=== PATIENT | female | born 1945 | race Caucasian/White ===

== ENCOUNTER 2019-05-31 10:30 | Inpatient (IN) | payer MEDICARE, MEDICAID ==
[~2019-05-31] VITALS: Ht 162.6 cm; Wt 71.2 kg
[2019-05-31] MEDS ORDERED: SODIUM CHLORIDE 0.9% 1,000 ML IV ONE (10:36)
[2019-05-31 11:01] LABS: BASOPHILS % 0.7 % (0.0-2.0); EOSINOPHILS % 1.6 % (0.0-5.0); HEMATOCRIT. 43.1 % (36.0-48.0); HEMOGLOBIN. 14.7 g/dL (12.0-16.0); LYMPHOCYTES % 41.5 % (20.0-50.0); MEAN CORPUSCULAR HEMOGLOBIN 31.5 pg (28.0-32.0); MEAN CORPUSCULAR VOLUME 92.5 fL (81.0-99.0); MONOCYTES % 6.3 % (2.0-8.0); NEUTROPHILS % 49.9 % (40.0-76.0); PLATELET 275 x1000/uL (130-400); RED BLOOD CELL COUNT 4.66 mill/uL (4.2-5.4); RED CELL DISTRIBUTION WIDTH 14.5 % (11.6-14.6)
[2019-05-31 11:04] LABS: CHLORIDE 111 mEq/L (98-107)
[2019-05-31 11:11] LABS: LDL CHOLESTEROL 88 mg/dL (5-100)
[2019-05-31 11:14] LABS: INR 0.9; PARTIAL THROMBOPLASTIN TIME 25.9 sec (23.4-31.0); PROTHROMBIN TIME 9.7 sec (9.6-11.0)
[2019-05-31] MEDS ORDERED: POLYVINYL ALCOHOL OPHTH DROPS 15ML RIGHTEYE STA (12:20)
[2019-05-31] MEDS ORDERED: ACYCLOVIR 400 MG TABLET PO STA (12:20)
[2019-05-31] MEDS ORDERED: ACETAMINOPHEN 325MG TABLET PO ONE (12:30)
[2019-05-31] MEDS ORDERED: PREDNISONE 20MG TABLET PO ONE (12:30)
[2019-05-31] MEDS ORDERED: ASPIRIN 325MG EC TABLET PO ONE (12:30)
[2019-05-31 14:35] VITALS: BP 137/44
[2019-05-31] MEDS ORDERED: CLONIDINE 0.1MG TABLET PO PRN (15:30)
[2019-05-31] MEDS ORDERED: DIPHENHYDRAMINE 50MG/ML VIAL IV PRN (15:30)
[2019-05-31] MEDS ORDERED: ONDANSETRON HCL 4MG/2ML INJ IV PRN (15:30)
[2019-05-31 16:00] VITALS: BP 131/58
[2019-05-31] MEDS ORDERED: CLON2TAB PO (16:15)
[2019-05-31] MEDS ORDERED: LITHBID MT (16:15)
[2019-05-31] MEDS ORDERED: DOCU-138 PO (16:15)
[2019-05-31] MEDS: ACYCLOVIR 400 MG TABLET PO SCH ×2 (17:24→21:03)
[2019-05-31] MEDS: HYDROCODONE/ACETAMINOPHEN 5/325MG TABLET PO PRN ×2 (17:26→22:06)
[2019-05-31] MEDS: DEXT 5%/0.45% NACL 1000ML 1,000 ML IV SCH (17:29)
[2019-05-31] MEDS: ACETAMINOPHEN 325MG TABLET PO PRN (19:44)
[2019-05-31 20:00] VITALS: BP 110/56
[2019-05-31] MEDS ORDERED: CLONAZEPAM 2 MG PO SCH (21:00)
[2019-05-31] MEDS: CLONAZEPAM 1MG TABLET PO SCH ×2 (21:03→22:05)
[2019-06-01] MEDS: LITHIUM CARBONATE 150 MG CAPSULE PO SCH ×3 (01:41→17:08)
[2019-06-01] MEDS: HYDROCODONE/ACETAMINOPHEN 5/325MG TABLET PO PRN ×4 (03:26→23:40)
[2019-06-01 04:00] VITALS: BP 101/50
[2019-06-01] MEDS: ACYCLOVIR 400 MG TABLET PO SCH ×5 (04:26→21:05)
[2019-06-01 05:47] LABS: BASOPHILS % 0.3 % (0.0-2.0); EOSINOPHILS % 0.5 % (0.0-5.0); HEMATOCRIT. 36.6 % (36.0-48.0); HEMOGLOBIN. 12.4 g/dL (12.0-16.0); LYMPHOCYTES % 26.9 % (20.0-50.0); MEAN CORPUSCULAR HEMOGLOBIN 31.4 pg (28.0-32.0); MEAN CORPUSCULAR VOLUME 92.8 fL (81.0-99.0); MEAN PLATELET VOLUME 8.3 fl (7.4-10.4); MONOCYTES % 4.3 % (2.0-8.0); PLATELET 271 x1000/uL (130-400); RED BLOOD CELL COUNT 3.95 mill/uL (4.2-5.4); RED CELL DISTRIBUTION WIDTH 14.2 % (11.6-14.6)
[2019-06-01 06:36] LABS: CHLORIDE 112 mEq/L (98-107)
[2019-06-01 08:00] VITALS: BP 113/51
[2019-06-01] MEDS: PREDNISONE 20MG TABLET PO SCH (08:44)
[2019-06-01] MEDS: DOCUSATE SODIUM 100MG CAPSULE PO SCH (08:44)
[2019-06-01] MEDS: DEXT 5%/0.45% NACL 1000ML 1,000 ML IV SCH ×2 (08:45→23:49)
[2019-06-01] MEDS ORDERED: LITHIUM CARBONATE MT SCH (09:00)
[2019-06-01 11:57] VITALS: BP 130/61
[2019-06-01 16:00] VITALS: BP 113/58
[2019-06-01 20:00] VITALS: BP 142/68
[2019-06-02] MEDS: ACETAMINOPHEN 325MG TABLET PO PRN ×2 (01:27→01:45)
[2019-06-02] MEDS: ACYCLOVIR 400 MG TABLET PO SCH ×3 (05:43→13:10)
[2019-06-02] MEDS: HYDROCODONE/ACETAMINOPHEN 5/325MG TABLET PO PRN ×2 (05:43→13:11)
[2019-06-02 06:11] LABS: CHLORIDE 114 mEq/L (98-107)
[2019-06-02 06:37] LABS: BASOPHILS % 0.4 % (0.0-2.0); EOSINOPHILS % 0.8 % (0.0-5.0); HEMATOCRIT. 36.4 % (36.0-48.0); HEMOGLOBIN. 12.4 g/dL (12.0-16.0); LYMPHOCYTES % 51.5 % (20.0-50.0); MEAN CORPUSCULAR HEMOGLOBIN 31.6 pg (28.0-32.0); MEAN CORPUSCULAR VOLUME 92.6 fL (81.0-99.0); MEAN PLATELET VOLUME 8.2 fl (7.4-10.4); NEUTROPHILS % 40.3 % (40.0-76.0); PLATELET 260 x1000/uL (130-400); RED BLOOD CELL COUNT 3.93 mill/uL (4.2-5.4); RED CELL DISTRIBUTION WIDTH 14.4 % (11.6-14.6)
[2019-06-02 08:00] VITALS: BP 135/59
[2019-06-02] MEDS: LITHIUM CARBONATE 150 MG CAPSULE PO SCH (09:23)
[2019-06-02] MEDS: DOCUSATE SODIUM 100MG CAPSULE PO SCH (09:23)
[2019-06-02] MEDS: PREDNISONE 20MG TABLET PO SCH (09:24)
[2019-06-02 16:47] VITALS: BP 115/52
== END 2019-06-02 18:00 | DRG 74 ==
LOC: ER 10:30 → 6WST 12:26 → ENRESERV 13:26
PROVIDERS: ADMIT Internal Medicine Nephrology; ATTEND Internal Medicine
DX: G51.0 Bell's palsy (principal); E78.5 Hyperlipidemia, unspecified; F31.9 Bipolar disorder, unspecified; R13.10 Dysphagia, unspecified; Z66 Do not resuscitate; F41.9 Anxiety disorder, unspecified; Z90.710 Acquired absence of both cervix and uterus; Z79.899 Other long term (current) drug therapy
CPT/HCPCS: 36415; 70551; 71045; 80048; 80053; 83721; 83880; 84484; 85025; 92610; 93005; 93306; 93880; 93970; 96360; 97116; 97162; 97535; 99285; J7030; J7512